=== PATIENT | male | born 1960 | race Caucasian/White ===

== ENCOUNTER 2018-04-18 10:07 | Emergency (ER) | payer BC ==
[~2018-04-18] VITALS: Ht 185.4 cm; Wt 122.0 kg
[~2018-04-18 10:07] MED LIST: ANASPAZ0.125 MG PO; ASPIR 8181 MG PO; ATENOLOL-CHLOR1 EACH PO; CIPRO500 MG PO; COLACE100 MG PO; EFFIENT10 MG PO; FLAGYL500 MG PO; HYDROCHLOROTHIA25 M1 PO; HYDROCODONE-AP1 EAC6 PO; LIPITOR 20 MG T20 M1 PO; LIPITOR10 MG PO; LISINOPRIL10 MG PO; LISINOPRIL2.5 MG PO; MINIPRIN81 MG; NITROGLYCERIN0.4 MG SUBLING; OMEPRAZOLE20 M2 PO; SPIRIVA INH; TOPROL XL25 MG PO; ZOFRAN ODT4 MG PO; ZPAK PO; [UNRECOGNIZED DRUG - OTHER]
[2018-04-18] MEDS ORDERED: LOSARTAN-HCTZ1 EAC3 PO (10:21)
[2018-04-18] MEDS ORDERED: METHIMAZOLE5 MG PO (10:21)
[2018-04-18] MEDS ORDERED: CARVEDILOL12.5 MG PO (10:21)
[2018-04-18] MEDS ORDERED: NORVASC5 MG PO (10:21)
[2018-04-18 10:58] LABS: INFLUENZA B ANTIGEN None Detected (None Detect)
[2018-04-18 11:30] LABS: HEMOGLOBIN 15.5 gm/dL (14.0-18.0); MCH 31.7 pg (26.0-34.0); MCHC 34.4 g/dL (28.0-37.0); MCV 92.1 fL (80.0-100.0); MPV 8.5 fl. (7.2-11.1); NUCLEATED RBCS 0 /100WBC; PLATELET COUNT* 186 thou/uL (150-400); RBC 4.89 mil/uL (4.50-6.00); WBC 7.1 thou/uL (4.0-11.0)
[2018-04-18 11:45] LABS: CALCIUM 8.9 mg/dL (8.5-10.1); CREATININE 1.3 mg/dL (0.6-1.3); POTASSIUM 3.5 mmol/L (3.5-5.1)
[2018-04-18 11:49] LABS: ALBUMIN 3.3 g/dL (3.4-5.0); TOTAL BILIRUBIN 0.4 mg/dL (<0.1-1.0)
[2018-04-18 12:40] LABS: ABSOLUTE LYMPHOCYTES 0.7 thou/uL (0.8-5.3); ABSOLUTE MONOCYTES 0.6 thou/uL (0.0-1.2); ABSOLUTE NEUTROPHILS 5.8 thou/uL (1.6-8.1); CLUMPED PLTS FEW; PLATELET ESTIMATE ADEQUATE
[2018-04-18] MEDS ORDERED: OSELB75 PO (13:03)
[2018-04-18] MEDS ORDERED: ONDANSETRON HCL4 M2 PO (13:03)
[2018-04-18] MEDS ORDERED: NORCO 5-325 TA1 EACH PO (13:03)
[2018-04-18 13:20] VITALS: BP 128/66
== END 2018-04-18 13:24 | disposition home or self-care (01) ==
LOC: M.ERS 10:07
PROVIDERS: Nurse Practitioner Family
DX: J10.1 Influenza due to other identified influenza virus with other respiratory manifestations (principal); M79.10 Myalgia, unspecified site; R11.0 Nausea; F17.210 Nicotine dependence, cigarettes, uncomplicated; I10 Essential (primary) hypertension; E78.00 Pure hypercholesterolemia, unspecified; Z90.49 Acquired absence of other specified parts of digestive tract; Z95.5 Presence of coronary angioplasty implant and graft; Z98.52 Vasectomy status; Z88.8 Allergy status to other drugs, medicaments and biological substances; Z88.0 Allergy status to penicillin